=== PATIENT | male | born 1950 | race Caucasian/White ===

== ENCOUNTER 2022-03-15 10:11 | Day surgery (SDC) | payer BC, MEDICARE ==
--- NOTE | 2022-03-13 09:36 | P.HPOR ---
History of Present Illness H&P Date: 03/13/22 Chief Complaint: Left thumb CMC arthritis, Left ring and index finger trigger finger Subjective: This is a 71 year old male that presents today for initial evaluation regarding a several year history of worsening left base of the thumb pain, and a several month history of worsening index and ring finger locking, catching and clicking. He has a history of a prior distal radius fracture treated with pinning over 15 years ago. He also had a carpal tunnel release performed on both sides around 5 years ago with good relief of his numbness. He has pain with pinching, grasping along the base of the thumb and notes the index finger no longer bends fully due to pain and swelling. He denies any paresthesias. Physical Examination: LUE: AIN/PIN/Radial/Ulnar/Median motor intact. Radial/Ulnar/Median SILT. 2+/4 Radial/Ulnar pulses palpated. 5/5 APB, 5/5 FDI. Negative Finkelsteins, positive CMC grind, negative Durkan's compression with previous endoscopic carpal tunnel incision scar. TTP over STT joint. Wrist F/E 45/60. TTP over index and ring finger A1 pulleys with locking/catching and clicking of digits with passive and active flexion/extension. Imaging: X-Rays of the left hand demonstrate advanced left thumb CMC arthritis, advanced STT arthritis, healed left distal radius fracture with loss of radial height, inclination. Marked ulnar positive variance due to radial shortening of old d istal radius fracture. Impression: 1.) Left thumb CMC arthritis, severe. 2.) Left STT arthritis, severe. 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 He states that his base of the thumb pain is now interfering with daily activities and conservative measures with NSAIDs are no long working. He would like to pursue surgical intervention to address all of his symptoms at once consisting of left thumb CMC tendon transfer arthroplasty with likely partial trapezoid resection due to his STT arthritis along with left index and ring finger A1 jack releases. Risks and benefits of surgery including bleeding, infection, damage to surrounding tissue, need for further surgery, residual numbness were discussed and the patient wished to go forward with surgery. -Srini Del Valle DO Orthopedic Hand/Upper Extremity Surgeon Physical Examination Osteopathic Statement: *. No significant issues noted on an osteopathic structural exam other than those noted in the History and Physical/Consult.
[~2022-03-15 10:11] MED LIST: DEXAMETHASONE SOD PHOSPHATE 4 MG/ML 1 ML VIAL IV ONE; HYDROmorphone 0.5 MG/0.5 ML SYRINGE IVP PRN; LACTATED RINGERS 1,000 ML IV SCH; LIDOCAINE 1% (10MG/ML) FOR IV START INTRADERMA PRN; ONDANSETRON 4 MG/2 ML VIAL IVP ONE; ONDANSETRON 4 MG/2 ML VIAL IVP PRN
[2022-03-15 10:47] VITALS: RESP 16
[2022-03-15] MEDS ORDERED: ceFAZolin 1,000 MG VIAL ONE (12:01)
[2022-03-15] MEDS ORDERED: MIDAZOLAM 2 MG/2 ML VIAL ONE (12:01)
[2022-03-15] MEDS ORDERED: HYDROmorphone (PF) 1 MG/ML ONE (12:01)
[2022-03-15] MEDS ORDERED: SODIUM CHLORIDE 0.9% 100 ML BAG ONE (12:01)
[2022-03-15] MEDS ORDERED: fentaNYL (PF) 50 MCG/ML 2 ML AMP ONE (12:01)
[2022-03-15] MEDS ORDERED: PROPOFOL 10 MG/ML 20 ML VIAL IV ONE (12:01)
[2022-03-15] MEDS ORDERED: LIDOCAINE 2% INJ 20 MG/ML (2 ML VIAL) ONE (12:01)
[2022-03-15] MEDS ORDERED: BUPIVACAINE (PF) 0.5% 30 ML VIAL SQ ONE ×2 (13:03→13:15)
[2022-03-15] MEDS ORDERED: LACTATED RINGERS 1,000 ML IV ONE (13:04)
[2022-03-15 13:44] VITALS: TEMP 97
--- NOTE | 2022-03-15 13:45 | P.OP ---
Date of Procedure: 03/15/22 Preoperative Diagnosis: 1.) Left thumb CMC arthritis 2.) Left STT arthritis 3.) Left ring finger trigger finger 4.) Left index finger trigger finger Postoperative Diagnosis: 1.) Left thumb CMC arthritis 2.) Left STT arthritis 3.) Left ring finger trigger finger 4.) Left index finger trigger finger Procedure(s) Performed: 1.) Left thumb CMC tendon transfer arthroplasty with trapezium resection 2.) Left trapezoid partial resection 3.) Left ring finger trigger finger A1 jack release 4.) Left index finger trigger finger A1 jack release Implants: 1.) Arthrex 3.5mm SwiveLock suture anchor x 2 Anesthesia: regional Surgeon: Srini Del Valle Invertebrate Paleontologist #1: Basim Mckay Estimated Blood Loss (ml): 5 Pathology: none sent Condition: stable Disposition: PACU Description of Procedure: This is a 71 year old male who presents today for a left thumb CMC tendon transfer arthroplasty and index and ring finger A1 jack releases after having failed conservative treatment for severe thumb CMC arthritis, STT arthritis and ring and index finger trigger fingers. Risks and benefits of surgery were discussed with the patient including bleeding, damage to surrounding tissue, infection, need for further surgery as well as risks of anesthesia including pulmonary embolism and even and the patient wished to proceed with surgical intervention. The patients was seen in the pre-operative area by myself. Consent and H&P were completed and updated. The correct extremity was marked in the pre-operative area by myself and all other questions were answered. Patient received a upper extremity nerve block by the department of anesthesia. He then was brought to the operating room by the department of anesthesia. They remained on the portable stretcher and a rolling hand table was brought to the side of the operative extremity. The patient was then drifted off to sleep by the department of anesthesia. A nonsterile tourniquet was then applied to the operative extremity and the left upper extremity was then prepped and draped in normal sterile fashion. Pre-operative time out was performed indicating the correct patient, procedure and laterality. All in the room agreed. Pre-operative antibiotics were given prior to skin incision. The operative extremity was the exsanguinated with an esmarch bandage and the tourniquet was inflated to 250mmHg. Longitudinal incision was made over the left thumb CMC joint with a 15 blade scalpel. Blunt dissection was taken down to subcutaneous tissues with littler scissors taking care to preserve the branches of the superficial radial nerve. Dorsal radial artery was identified proximally in the incision and protected throughout the procedure. Scalpel was then made to incise the thumb CMC joint creating full thickness flaps off of the proximal metacarpal base and trapezium, this plane was further developed with a periosteal elevator. Elevator was then utilized to identify the thumb CMC joint and scaphotrapezial joint. McGlamory elevator was then used to excise the trapezium whole. There was severe arthritic changes at the ST joint. Decision was made to perform partial trapezoidectomy. Small osteotome and mallet was used to resect the proximal 1/3 of the trapezoid on a slightly oblique angle to prevent impingement. Guidewire was then introduced down to the laser line at the base of the first metacarpal through the same incision and was over drilled with gold drill guide to prepare for APL graft. Another guidewire was then inserted at the radial base of the first metacarpal near the Insertion of APL and was then over drilled with normal drill guide. A 2-3mm wide slip of APL was then harvested and incised proximally and reflected distally keeping its attachment at the base of the first metacarpal. The slip of APL was captured with a 3-0 looped fiberwire suture. A 3.5mm Arthrex SwiveLock anchor was then inserted into the base of the first metacarpal. Another 3.5mm Arthrex SwiveLock anchor was inserted into the base of the second metacarpal with the thumb in slight traction and adduction while capturing the APL graft and two strands of fibertape center across the first metacarpal base to create a sling around the base suspending the thumb metacarpal, good mylene purchase was appreciated. The thumb was successfully suspended and full ROM was achieved passively. Suture and graft ends were cut and skin was closed with several interrupted 4-0 Monocryl sutures followed by a running 4-0 Monocryl stitch. Oblique incision was made at the base of the index finger. Blunt dissection was taken down to the level of the A1 jack. Ragnell retractors were placed both radially and ulnarly to protect neurovascular bundles. Littler tenotomy scissors were then used to release the A1 jack from proximal to distal under direct visualization. Proximal fascial attachments were released. The tendon was then taken through range of motion and no locking or catching was appreciated. Oblique incision was made at the base of the ring finger. Blunt dissection was taken down to the level of the A1 jack. Ragnell retractors were placed both radially and ulnarly to protect neurovascular bundles. Littler tenotomy scissors were then used to release the A1 jack from proximal to distal under direct visualization. Proximal fascial attachments were released. The tendon was then taken through range of motion and no locking or catching was appreciated. The wound was then closed with interrupted 4-0 nylon sutures in a horizontal mattress fashion. 20cc's of 0.25% bupivicaine was injected throughout the wrist to perform a wrist block, Sterile dressing consisting of mastisol and steri strips at thumb CMC incision was placed followed by 4x4s cast padding, and a thumb spica plaster splint was applied. Tourniquet was let down and the hand had brisk cap refill and normal perfusion immediately. The patient was then woken by the department of anesthesia and transferred to PACU in stable condition. Basim MIRANDA was present for the case and assisted in major portions of procedure and protection of vital neurovascular structures. Srini Del Valle D.O. Orthopedic Hand/Upper Extremity Surgeon
[2022-03-15] MEDS ORDERED: HYDROcodone/APAP 5-325MG 1 EACH TAB PO ONE (14:18)
[2022-03-15] MEDS ORDERED: HYDROcodone/APAP 5-325MG 1 EACH TAB ONE (14:20)
[2022-03-15 14:53] VITALS: BP 113/66; PULSE 65
== END 2022-03-15 15:06 | disposition home or self-care (01) ==
LOC: OR 10:11
PROVIDERS: ATTEND Orthopaedic Surgery Hand Surgery
DX: M18.12 Unilateral primary osteoarthritis of first carpometacarpal joint, left hand (principal); M65.342 Trigger finger, left ring finger; M65.322 Trigger finger, left index finger; E78.5 Hyperlipidemia, unspecified; Z95.0 Presence of cardiac pacemaker; Z79.899 Other long term (current) drug therapy; Z82.3 Family history of stroke
CPT/HCPCS: 26055 ×2; 25447; 26480; C1713; J2250; J1100; J2405; J0690; J3010; J1170; J2704; J2001